=== PATIENT | female | born 1960 | race Caucasian/White ===

== ENCOUNTER 2025-02-19 14:51 | Outpatient (CLI) | payer OTHER, SELFPAY ==
--- NOTE | ~2025-02-19 | MR_ITS ---
EXAMINATION: MR brain/brain stem wo/w con DATE: 02/19/2025 15:45 INDICATION: Trigeminal neuralgia TECHNIQUE: Magnetic resonance imaging (MRI) of the brain and brainstem was performed without and with 14 mL Multihance intravenous contrast. Sequences included sagittal and axial T1-weighted FSE, axial diffusion-weighted FS EPI, axial T2*-weighted GRE, axial T2-weighted FLAIR Propeller, axial T2-weighted Propeller, small rreij-ab-hqzh coronal FIESTA, small edito-gb-otdw coronal T1- weighted FSE, and small hsoai-bw-unek axial T1-weighted SPGR. Postcontrast sequences included axial T1-weighted FSE, small vvvcg-ro-hkjp coronal T1- weighted FSE, and small wilds-cu-cqet axial T1-weighted SPGR. Apparent diffusion coefficient (ADC) maps were created. COMPARISON: None. FINDINGS: There are no areas of restricted diffusion to suggest acute infarction. Small old lacunar infarct versus more likely prominent perivascular space in the posterior left frontal lobe white matter. No intracranial hemorrhage or abnormal intracranial mass lesion. There are no intraparenchymal signal abnormalities seen on the other pulse sequences. The ventricles are symmetric and normal in size. There are no abnormal extra-axial fluid collections. Trigeminal nerves appear normal bilaterally with no abnormal enhancement or evident abnormally impinging vessels or masses along the course of the trigeminal nerve either at the prepontine cistern or at Meckel's cave. Flow voids are seen in the cerebral arteries on the T2-weighted sequences consistent with their expected patency. Visualized orbits and soft tissues are unremarkable. There are no areas of abnormal enhancement on the post contrast images. IMPRESSION: 1. Small old lacunar infarct versus more likely prominent perivascular space in the posterior left frontal lobe white matter. Otherwise normal brain with no acute intracranial process. 2. No abnormal enhancement, impinging vessels or masses along the course of the bilateral trigeminal nerves. Reviewed, dictated and finalized at location A. [employer] IMPRESSION: 1. Small old lacunar infarct versus more likely prominent perivascular space in the posterior left frontal lobe white matter. Otherwise normal brain with no a cute intracranial process. 2. No abnormal enhancement, impinging vessels or masses along the course of the bilateral trigeminal nerves.
== END 2025-02-19 14:52 | disposition home or self-care (01) ==
LOC: MICIMG 14:52
PROVIDERS: PCP Family Medicine; Visit Provider Family Medicine
DX: G50.0 Trigeminal neuralgia (principal)
CPT/HCPCS: 70553; A9577